=== PATIENT | male | born 2000 | race Caucasian/White ===

== ENCOUNTER 2019-06-02 15:21 | Observation (INO) | payer OTHER ==
[~2019-06-02 15:21] MED LIST: DEXAMETHASONE SOD PHOSPHATE INJ 4 MG/1 ML VIAL ONE; GLYCOPYRROLATE 1 MG/5 ML VIAL ONE; NEOSTIGMINE METHYLSULFATE 10 MG/10 ML VIAL ONE; ONDANSETRON HCL INJ/PF 4 MG/2 ML SDV ONE; ROCURONIUM BROMIDE INJ 50 MG/5 ML VIAL IV ONE; SUCCINYLCHOLINE CHLORIDE INJ 200 MG/10 ML VIAL ONE
[2019-06-02] MEDS ORDERED: CAPSAICIN 0.025% CREAM 60 GM TP ONE (15:33)
--- NOTE | 2019-06-02 15:35 | ER Document Report ---
ED Medical Screen (RME) - General Chief Complaint: Abdominal Pain Stated Complaint: ABDOMNAL PAIN Time Seen by Provider: 06/02/19 15:26 Mode of Arrival: Ambulatory Information source: Patient Notes: 18-year-old male presents to emergency department with complaints of abdominal pain since yesterday. Reports he thought it eased off yesterday but returned. Reports he has had diarrhea. Reports nausea no vomiting no fever but he did feel hot and cold. Patient does admit to smoking marijuana on a regular basis. Patient reports hot showers baths seem to make him feel better. Patient is te nder right lower quad. Has only had Gatorade to drink today. Has not been instructed on n.p.o. status. I have greeted and performed a rapid initial assessment of this patient. A comprehensive ED assessment and evaluation of the patient, analysis of test results and completion of the medical decision making process will be conducted by additional ED providers. Dictation of this chart was performed using voice recognition software; therefore, there may be some unintended grammatical errors. Physical Exam - Vital signs Vitals: Temp Pulse Resp BP Pulse Ox 98.4 F 79 20 119/69 99 06/02/19 15:26 06/02/19 15:26 06/02/19 15:26 06/02/19 15:26 06/02/19 15:26 Course - Vital Signs Vital signs: Temp Pulse Resp BP Pulse Ox 98.4 F 79 20 119/69 99 06/02/19 15:26 06/02/19 15:26 06/02/19 15:26 06/02/19 15:26 06/02/19 15:26
--- NOTE | 2019-06-02 16:36 | RADIOLOGY REPORT (SQ) ---
EXAM DESCRIPTION: U/S ABDOMEN LIMITED W/O DOP COMPLETED DATE/TIME: 06/02/2019 4:20 pm REASON FOR STUDY: RLQ RUQ PAIN, CHECK APPENDIX PLEASE COMPARISON: None. TECHNIQUE: Static and real time ivey scale imaging performed of the right and left lower quadrants w ith additional compression maneuvers. LIMITATIONS: None. FINDINGS: APPENDIX: Not visualized. BOWEL: Active peristalsis with fluid in the bowel. OTHER: No other significant finding. IMPRESSION: Appendix was not identified. Active peristalsis of bowel loops in the right and left lower quadrants was appreciated. TECHNICAL DOCUMENTATION: JOB ID: [id number] [employer]- All Rights Reserved Reading location - IP/workstation name: [email or web address]
[2019-06-02 16:43] LABS: ABSOLUTE BASOPHILS # (AUTO) 0.1 10^3/uL (0.0-0.2); ABSOLUTE EOSINOPHILS # (AUTO) 0.1 10^3/uL (0.0-0.6); ABSOLUTE LYMPHOCYTES (AUTO) 1.5 10^3/uL (0.5-4.7); ABSOLUTE NEUT (AUTO) 12.6 10^3/uL (1.7-8.2); BASOPHILS % (AUTO) 0.6 % (0-2); HEMATOCRIT 44.1 % (37.9-51.0); HEMOGLOBIN 15.6 g/dL (13.5-17.0); MEAN CORPUSCULAR HGB CONC 35.3 g/dL (32.0-36.0); MEAN CORPUSCULAR VOLUME 85 fl (80-97); MONOCYTES % (AUTO) 6.8 % (3-13); PLATELET COUNT 298 10^3/uL (150-450); RED BLOOD COUNT 5.19 10^6/uL (4.35-5.55); RED CELL DISTRIBUTION WIDTH 12.7 % (11.5-14.0); SEGMENTED NEUTROPHILS % (AUTO) 81.6 % (42-78); TOTAL CELLS COUNTED % (AUTO) 100 %; WHITE BLOOD COUNT 15.4 10^3/uL (4.0-10.5)
[2019-06-02 16:50] LABS: APPEARANCE,URINE SLIGHTLY-CLOUDY; BILIRUBIN,URINE NEGATIVE (NEGATIVE); COLOR,URINE AMBER; GLUCOSE, URINE NEGATIVE (NEGATIVE); KETONES,URINE TRACE mg/dL (NEGATIVE); LEUKOCYTE ESTERASE,URINE NEGATIVE (NEGATIVE); NITRITE,URINE NEGATIVE (NEGATIVE); PROTEIN,URINE 30 mg/dL (NEGATIVE)
[2019-06-02 17:01] LABS: ALBUMIN 4.7 g/dL (3.7-5.6); ALKALINE PHOSPHATASE 69 U/L (65-260); ANION GAP 11 (5-19); ASPARTATE AMINO TRANSFERASE 15 U/L (10-45); BILIRUBIN,DIRECT 0.2 mg/dL (0.0-0.4); BILIRUBIN,TOTAL 2.3 mg/dL (0.2-1.3); BLOOD UREA NITROGEN 7 mg/dL (7-20); CALCIUM 10.1 mg/dL (8.4-10.2); CARBON DIOXIDE 27 mmol/L (22-30); CHLORIDE 100 mmol/L (98-107); GLUCOSE 94 mg/dL (75-110); POTASSIUM 3.7 mmol/L (3.6-5.0); TOTAL PROTEIN 7.5 g/dL (6.3-8.2)
[2019-06-02 17:04] LABS: URINE AMPHETAMINES SCREEN NEGATIVE; URINE BARBITURATES SCREEN NEGATIVE; URINE BENZODIAZEPINES SCREEN NEGATIVE; URINE COCAINE SCREEN NEGATIVE; URINE MARIJUANA (THC) SCREEN UNCONFIRMED POSITIVE; URINE METHADONE SCREEN NEGATIVE; URINE PHENCYCLIDINE SCREEN NEGATIVE
[2019-06-02] MEDS ORDERED: NORMAL SALINE 1000 ML 1,000 ML IV ONE ×2 (17:57→19:39)
[2019-06-02] MEDS ORDERED: FENTANYL CITRATE INJ/PF 100 MCG/2 ML AMPUL IV ONE (17:57)
[2019-06-02] MEDS ORDERED: ONDANSETRON HCL INJ/PF 4 MG/2 ML SDV IV ONE (17:57)
[2019-06-02] MEDS ORDERED: FENTANYL CITRATE INJ/PF 100 MCG/2 ML AMPUL ONE (18:08)
--- NOTE | 2019-06-02 19:30 | RADIOLOGY REPORT (SQ) ---
EXAM DESCRIPTION: CT ABD/PELVIS WITH IV ONLY COMPLETED DATE/TIME: 06/02/2019 7:13 pm REASON FOR STUDY: RLQ pain COMPARISON: None. TECHNIQUE: CT scan of the abdomen and pelvis performed using helical scanning technique with dynamic intravenous contrast injection. No oral contrast. Images reviewed with lung, soft tissue, and bone w indows. Reconstructed coronal and sagittal MPR images reviewed. Delayed images for evaluation of the urinary system also acquired. All images stored on PACS. All CT scanners at this facility use dose modulation, iterative reconstruction, and/or weight based d osing when appropriate to reduce radiation dose to as low as reasonably achievable (ALARA). [facility]: Dose Right [facility]: CareDose [facility]: Dose Right [facility]: Teradose 4D [facility]: [employer] CONTRAST TYPE AND DOSE: contrast/concentration: Isovue 350.00 mg/ml; Total Contrast Delivered: 83.0 ml; Total Saline Delivered: 57.0 ml RENAL FUNCTION: GFR > 60. RADIATION DOSE: CT Rad equipment meets quality standard of care and radiation dose reduction techniq ues were employed. CTDIvol: 5.1 - 6.3 mGy. DLP: 652 mGy-cm.. LIMITATIONS: None. FINDINGS: LOWER CHEST: No significant findings. LIVER: Normal size. No enhancing masses. No dilated ducts. SPLEEN: Normal size. No focal lesions. PANCREAS: No masses identified. No significant calcifications. No adjacent inflammation or peripancre atic fluid collections. Pancreatic duct not dilated. GALLBLADDER: No calcified stones. No inflammatory changes to suggest cholecystitis. ADRENAL GLANDS: No significant masses. RIGHT KIDNEY AND URETER: No cysts identified. No solid masses identified. No calcified stones. No hyd ronephrosis or hydroureter. LEFT KIDNEY AND URETER: Small cysts identified. No solid masses identified. No calcified stones. No h ydronephrosis or hydroureter. AORTA AND VESSELS: No aneurysm. No dissection. Renal arteries, SMA, celiac without significant stenos is. RETROPERITONEUM: No bulky retroperitoneal adenopathy. BOWEL AND PERITONEAL CAVITY: No obstruction or inflammatory changes. No free fluid. APPENDIX: 2 cm diameter with wall thickening and adjacent inflammatory changes. No adjacent free air or fluid collection identified. PELVIS: Trace free fluid. Unremarkable bladder. ABDOMINAL WALL: No masses. No hernias. BONES: No acute findings. OTHER: No other significant finding. IMPRESSION: Acute appendicitis.No adjacent free air or fluid collection identified. TECHNICAL DOCUMENTATION: JOB ID: [id number] [place]-72 Quality ID # [id number]: Final reports with documentation of one or more dose reduction techniques (e.g., Au tomated exposure control, adjustment of the mA and/or kV according to patient size, use of iterative reconstruction technique) 2010 [employer]- All Rights Reserved Reading location - IP/workstation name: [email or web address]
[2019-06-02] MEDS ORDERED: HYDROMORPHONE HCL INJ/PF 2 MG/ML AMPULE IV ONE (19:38)
--- NOTE | 2019-06-02 19:45 | ER Document Report ---
ED GI/ - General Chief Complaint: Abdominal Pain Stated Complaint: ABDOMNAL PAIN Time Seen by Provider: 06/02/19 15:26 Mode of Arrival: Ambulatory Notes: Patient is an otherwise healthy 18-year-old male presents to the emergency department for stabbing lower abdominal pain that started yesterday morning. Patient voices generalized nausea but is denying any vomiting. States multiple episodes of diarrhea but is denying any blood in his stool. Patient admits to a subjective fever. Is denying any dysuria. He is denying any testicular pain or penile discharge. Patient is up-to-date on immunizations, states last oral intake was yesterday evening. TRAVEL OUTSIDE OF THE [place] IN LAST 30 DAYS: No - Related Data Allergies/Adverse Reactions: No Known Allergies Allergy (Unverified 06/02/19 18:04) Past Medical History - General Information source: Patient - Social History Smoking Status: Never Smoker Chew tobacco use (# tins/day): No Frequency of alcohol use: None Drug Abuse: Marijuana Family History: Reviewed & Not Pertinent Patient has suicidal ideation: No Patient has homicidal ideation: No Review of Systems - Review of Systems Constitutional: Fever EENT: No symptoms reported Cardiovascular: No symptoms reported Respiratory: No symptoms reported Gastrointestinal: See HPI Genitourinary: No symptoms reported Male Genitourinary: No symptoms reported Musculoskeletal: No symptoms reported Skin: No symptoms reported Hematologic/Lymphatic: No symptoms reported Neurological/Psychological: No symptoms reported Physical Exam - Vital signs Vitals: Temp Pulse Resp BP Pulse Ox 98.4 F 79 20 119/69 99 06/02/19 15:26 06/02/19 15:26 06/02/19 15:26 06/02/19 15:26 06/02/19 15:26 - Notes Notes: GENERAL: Alert, interacts well. HEAD: Normocephalic, atraumatic. EYES: Pupils equal, round, and reactive to light. Extraocular movements intact. ENT: Oral mucosa moist, tongue midline. NECK: Full range of motion. Supple. Trachea midline. LUNGS: Clear to auscultation bilaterally, no wheezes, rales, or rhonchi. No respiratory distress. HEART: Regular rate and rhythm. No murmur ABDOMEN: Soft, generalized right and left lower abdominal pain noted. Non- distended. Bowel sounds present in all 4 quadrants. EXTREMITIES: Moves all 4 extremities spontaneously. No edema, normal radial and dorsalis pedis pulses bilaterally. No cyanosis. BACK: no cervical, thoracic, lumbar midline tenderness. No saddle anesthesia, normal distal neurovascular exam. NEUROLOGICAL: Alert and oriented x3. Normal speech. cranial nerves II through XII grossly intact PSYCH: Normal affect, normal mood. SKIN: Warm, dry, normal turgor. No rashes or lesions noted. Course - Re-evaluation Re-evalutation: 06/02/19 19:44 Laboratory 06/02/19 06/02/19 06/02/19 16:26 16:26 16:26 WBC 15.4 H RBC 5.19 Hgb 15.6 Hct 44.1 MCV 85 MCH 30.0 MCHC 35.3 RDW 12.7 Plt Count 298 Lymph % (Auto) 10.0 L [place] % (Auto) 6.8 Eos % (Auto) 1.0 Baso % (Auto) 0.6 Absolute Neuts (auto) 12.6 H Absolute Lymphs (auto) 1.5 Absolute Monos (auto) 1.0 Absolute Eos (auto) 0.1 Absolute Basos (auto) 0.1 Seg Neutrophils % 81.6 H Sodium 138.2 Potassium 3.7 Chloride 100 Carbon Dioxide 27 Anion Gap 11 BUN 7 Creatinine 0.89 Est GFR ( Amer) > 60 Est GFR (MDRD) Non-Af > 60 Glucose 94 Calcium 10.1 Total Bilirubin 2.3 H Direct Bilirubin 0.2 Neonat Total Bilirubin Not Reportable Neonat Direct Bilirubin Not Reportable Neonat Indirect Bili Not Reportable AST 15 ALT 14 Alkaline Phosphatase 69 Total Protein 7.5 Albumin 4.7 Lipase 16.2 L Urine Color BERNARD Urine Appearance SLIGHTLY-CLOUDY Urine pH 6.0 Ur Specific [place] 1.020 Urine Protein 30 H Urine Glucose (UA) NEGATIVE Urine Ketones TRACE H Urine Blood SMALL H Urine Nitrite NEGATIVE Urine Bilirubin NEGATIVE Urine Urobilinogen 2.0 H Ur Leukocyte Esterase NEGATIVE Urine WBC (Auto) 2 Urine RBC (Auto) 7 Urine Mucus (Auto) MANY Urine Ascorbic Acid NEGATIVE Urine Opiates Screen Urine Methadone Screen Ur Barbiturates Screen Ur Phencyclidine Scrn Ur Amphetamines Screen U Benzodiazepines Scrn Urine Cocaine Screen U Marijuana (THC) Screen 06/02/19 16:26 WBC RBC Hgb Hct MCV MCH MCHC RDW Plt Count Lymph % (Auto) [place] % (Auto) Eos % (Auto) Baso % (Auto) Absolute Neuts (auto) Absolute Lymphs (auto) Absolute Monos (auto) Absolute Eos (auto) Absolute Basos (auto) Seg Neutrophils % Sodium Potassium Chloride Carbon Dioxide Anion Gap BUN Creatinine Est GFR ( Amer) Est GFR (MDRD) Non-Af Glucose Calcium Total Bilirubin Direct Bilirubin Neonat Total Bilirubin Neonat Direct Bilirubin Neonat Indirect Bili AST ALT Alkaline Phosphatase Total Protein Albumin Lipase Urine Color Urine Appearance Urine pH Ur Specific [place] Urine Protein Urine Glucose (UA) Urine Ketones Urine Blood Urine Nitrite Urine Bilirubin Urine Urobilinogen Ur Leukocyte Esterase Urine WBC (Auto) Urine RBC (Auto) Urine Mucus (Auto) Urine Ascorbic Acid Urine Opiates Screen NEGATIVE Urine Methadone Screen NEGATIVE Ur Barbiturates Screen NEGATIVE Ur Phencyclidine Scrn NEGATIVE Ur Amphetamines Screen NEGATIVE U Benzodiazepines Scrn NEGATIVE Urine Cocaine Screen NEGATIVE U Marijuana (THC) Screen UNCONFIRMED POSITIVE Abdomen Ultrasound 06/02/19 15:32 IMPRESSION: Appendix was not identified. Active peristalsis of bowel loops in the right and left lower quadrants was appreciated. Abdomen/Pelvis CT 06/02/19 17:57 IMPRESSION: Acute appendicitis.No adjacent free air or fluid collection identified. Initial orders and ultrasound placed by [facility] provider. Based on my physical assessment patient does have significant right lower quadrant pain. Treated with pain medication and nausea medication. Patient CT image does show acute appendicitis. I have discussed this case with surgeon Dr. Gaines. He states he will come to the emergency department to evaluate the patient. - Vital Signs Vital signs: Temp Pulse Resp BP Pulse Ox 98.4 F 79 20 119/69 99 06/02/19 15:26 06/02/19 15:26 06/02/19 15:26 06/02/19 15:26 06/02/19 15:26 - Laboratory Result Diagrams: 06/02/19 16:26 06/02/19 16:26 Laboratory results interpreted by me: 06/02/19 06/02/19 06/02/19 16:26 16:26 16:26 WBC 15.4 H Lymph % (Auto) 10.0 L Absolute Neuts (auto) 12.6 H Seg Neutrophils % 81.6 H Total Bilirubin 2.3 H Lipase 16.2 L Urine Protein 30 H Urine Ketones TRACE H Urine Blood SMALL H Urine Urobilinogen 2.0 H Discharge - Discharge Clinical Impression: Acute appendicitis Qualifiers: Acute appendicitis type: unspecified acute appendicitis type Qualified Code(s): K35.80 - Unspecified acute appendicitis Condition: Stable Disposition: ADMITTED INPATIENT Admitting Provider: Surgicalist - Dr. Gaines Unit Admitted: OR
[2019-06-02] MEDS ORDERED: PIPERACILLIN/TAZOBACTAM 3.375 GM VIAL IV ONE (20:16)
--- NOTE | 2019-06-02 20:16 | PDOC H&P ---
History of Present Illness Patient complains of: lower abdominal pain History of Present Illness: ADRI TAVERAS is a 18 year old male with no significant medical problems. He reports a 24-hour history of right lower quadrant and pelvic pain. His pain intensified, and he presented for evaluation at the emergency department. His pain is sharp and stabbing. It is growing in intensity. Currently it is 5 out of 10. It radiates to his pelvis and left lower quadrant. Nothing makes it better. Palpation makes it worse. The patient denies chest pain, shortness of breath, fevers, chills, nausea, vomiting, melena, hematochezia, dizziness, orthostasis, headache. Past Medical History Medical History: None Past Surgical History Past Surgical History: Reports: None Social History Smoking Status: Current Every Day Smoker - E-cigarettes Electronic Cigarette use?: Yes Frequency of Alcohol Use: Occasional Drugs: None Family History Family History: Reviewed & Not Pertinent Parental Family History Reviewed: Yes Children Family History Reviewed: Yes Sibling(s) Family History Reviewed.: Yes Medication/Allergy Allergies/Adverse Reactions: No Known Allergies Allergy (Unverified 06/02/19 18:04) Review of Systems Constitutional: ABSENT: anorexia, chills, fatigue, fever(s), headache(s) Eyes: ABSENT: visual disturbances Ears: ABSENT: hearing changes Nose, Mouth, and Throat: ABSENT: mouth pain, sore throat Cardiovascular: ABSENT: chest pain Respiratory: ABSENT: cough, dyspnea Gastrointestinal: PRESENT: abdominal pain. ABSENT: hematemesis, hematochezia, melena, nausea, vomiting Genitourinary: ABSENT: dysuria Musculoskeletal: ABSENT: back pain Neurological: ABSENT: confusion, convulsions, dizziness, paresthesias Psychiatric: ABSENT: anxiety, depression Endocrine: ABSENT: cold intolerance, heat intolerance Hematologic/Lymphatic: ABSENT: easy bleeding, easy bruising Physical Exam Vital Signs: Temp Pulse Resp BP Pulse Ox 98.4 F 79 20 119/69 99 06/02/19 15:26 06/02/19 15:26 06/02/19 15:26 06/02/19 15:26 06/02/19 15:26 Intake & Output 06/01/19 06/02/19 06/03/19 06:59 06:59 06:59 Intake Total 1000 Balance 1000 Weight 73.5 kg General appearance: PRESENT: no acute distress, cooperative. ABSENT: disheveled Head exam: PRESENT: atraumatic, normocephalic Eye exam: PRESENT: EOMI, PERRLA. ABSENT: scleral icterus Mouth exam: PRESENT: moist, neck supple Neck exam: ABSENT: tenderness, thyromegaly, tracheal deviation Respiratory exam: PRESENT: clear to auscultation jewell, unlabored. ABSENT: chest wall tenderness, tachypnea, wheezes Cardiovascular exam: PRESENT: RRR Pulses: PRESENT: normal radial pulses Vascular exam: PRESENT: normal capillary refill, pallor GI/Abdominal exam: PRESENT: soft, tenderness - Right lower quadrant and suprapubic areas., other - No sign of generalized peritonitis.. ABSENT: distended, rebound Rectal exam: PRESENT: deferred Extremities exam: ABSENT: clubbing Musculoskeletal exam: ABSENT: deformity Neurological exam: PRESENT: alert, awake, oriented to person, oriented to place, oriented to time, oriented to situation, CN II-XII grossly intact. ABSENT: motor sensory deficit Psychiatric exam: ABSENT: agitated, anxious, depressed Focused psych exam: ABSENT: delusional Skin exam: ABSENT: cyanosis, erythema, jaundice Results Laboratory Results: 06/02/19 16:26 06/02/19 16:26 06/02/19 06/02/19 06/02/19 16:26 16:26 16:26 WBC 15.4 H RBC 5.19 Hgb 15.6 Hct 44.1 MCV 85 MCH 30.0 MCHC 35.3 RDW 12.7 Plt Count 298 Seg Neutrophils % 81.6 H Sodium 138.2 Potassium 3.7 Chloride 100 Carbon Dioxide 27 Anion Gap 11 BUN 7 Creatinine 0.89 Est GFR ( Amer) > 60 Glucose 94 Calcium 10.1 Total Bilirubin 2.3 H AST 15 Alkaline Phosphatase 69 Total Protein 7.5 Albumin 4.7 Lipase 16.2 L Urine Color BERNARD Urine Appearance SLIGHTLY-CLOUDY Urine pH 6.0 Ur Specific [place] 1.020 Urine Protein 30 H Urine Glucose (UA) NEGATIVE Urine Ketones TRACE H Urine Blood SMALL H Urine Nitrite NEGATIVE Ur Leukocyte Esterase NEGATIVE Urine WBC (Auto) 2 Urine RBC (Auto) 7 Impressions: Abdomen Ultrasound 06/02/19 15:32 IMPRESSION: Appendix was not identified. Active peristalsis of bowel loops in the right and left lower quadrants was appreciated. Abdomen/Pelvis CT 06/02/19 17:57 IMPRESSION: Acute appendicitis.No adjacent free air or fluid collection identified. Status: Image reviewed by me Assessment & Plan - Diagnosis (1) Acute appendicitis Qualifiers: Acute appendicitis type: unspecified acute appendicitis type Qualified Code(s): K35.80 - Unspecified acute appendicitis Is this a current diagnosis for this admission?: Yes - Plan Summary Plan Summary: This is a 18-year-old male with a 1 day history of right lower quadrant pain. It is sharp and stabbing. It is worsening. The patient has a physical exam, laboratory findings, and CT scan (which I have reviewed images and report) that are consistent with acute appendicitis. I have discussed treatment of appendicitis with the patient. I have reviewed operative versus nonoperative management strategies. The patient is chosen operative management of his acute appendicitis. Risks/benefits discussed, informed consent obtained, and all questions answered.
[2019-06-02] MEDS ORDERED: BUPIVACAINE HCL 0.25 % INJ/PF (2.5 MG/1 ML) 30 ML VIAL ONE (20:52)
[2019-06-02] MEDS ORDERED: FENTANYL CITRATE INJ/PF 250 MCG/5 ML AMPULE ONE (20:56)
[2019-06-02] MEDS ORDERED: MIDAZOLAM 2 MG/2 ML INJ ONE (20:56)
[2019-06-02] MEDS ORDERED: PROPOFOL INJ 200 MG/20 ML VIAL IV ONE (20:57)
[2019-06-02] MEDS ORDERED: PIPERACILLIN SODIUM/TAZOBACTAM 3.375 GM in NORMAL SALINE 100 ML IV ONE (21:00)
[2019-06-02] MEDS ORDERED: DIPHENHYDRAMINE HCL 50 MG/ML VIAL IV PRN (22:07)
[2019-06-02] MEDS ORDERED: MORPHINE SULFATE 10 MG/ML INJ IV PRN (22:07)
[2019-06-02] MEDS ORDERED: FENTANYL CITRATE INJ/PF 100 MCG/2 ML AMPUL IV PRN ×3 (22:07)
[2019-06-02] MEDS ORDERED: MEPERIDINE HCL/PF INJ 25 MG/1 ML DISP.SYRIN IV PRN (22:07)
[2019-06-02] MEDS ORDERED: PROMETHAZINE HCL INJ 25 MG/1 ML VIAL IV PRN (22:07)
--- NOTE | 2019-06-02 22:16 | Operative Report ---
Nonrecallable Operative Report DATE OF SURGERY: 06/02/19 PREOPERATIVE DIAGNOSIS: Acute appendicitis POSTOPERATIVE DIAGNOSIS: Acute appendicitis, nonperforated OPERATION: Laparoscopic appendectomy SURGEON: DENG DO ANESTHESIA: GA TISSUE REMOVED OR ALTERED: Appendix COMPLICATIONS: None apparent ESTIMATED BLOOD LOSS: Minimal PROCEDURE: Drains/implants: None. Procedure in detail: After informed consent was obtained, the patient was brought to the operating room and laid in the supine position. The area of the abdomen was prepped and draped in a normal sterile fashion. A supraumbilical incision was created with a 15 blade scalpel. Dissection was carried through the subcutaneous tissue using sharp and blunt dissection. The cicatrix was identified, grasped with a Louie clamp, and retracted upwards. The linea alba fascia was incised sharply, the abdomen was entered sharply. The balloon trocar was inserted, and pneumoperitoneum was achieved. A suprapubic 5 mm trocar was placed under direct laparoscopic visualization, as well as a left lower quadrant 5 mm trocar. Atraumatic graspers were placed through the 5 mm ports. The appendix was identified. It was inflamed and injected. It was not perforated. The appendix was retracted anteriorly. The mesoappendix was taken down using the harmonic scalpel. 2 PDS Endoloops were secured around the base of the appendix. The appendix was then amputated using the harmonic scalpel. The appendix was placed into an Endo Catch bag and pulled out through the umbilicus. The camera was reinserted. The abdomen was inspected. No other obvious defect could be identified throughout the abdomen. A small amount of free fluid was suctioned from the pelvis. No irrigation was used. The 5 mm trochars were then removed under direct laparoscopic visualization. The supraumbilical trocar was removed, and pneumoperitoneum was relieved. The supraumbilical fascia was closed using 0 Vicryl suture in [id number] fashion. The overlying skin was closed using 4-0 Vicryl Rapide suture in subcuticular fashion. All sponge, instrument, and needle counts were correct x2. Condition: Stable.
[2019-06-02] MEDS ORDERED: ONDANSETRON HCL INJ/PF 4 MG/2 ML SDV IV PRN (22:20)
[2019-06-02] MEDS: HYDROCODONE/ACETAMINOPHEN 10-325 MG TABLET PO PRN (23:19)
[2019-06-02] MEDS: FAMOTIDINE 20 MG TABLET PO SCH (23:19)
[2019-06-03] MEDS: MORPHINE SULFATE 10 MG/ML INJ IV PRN ×2 (00:41→09:15)
[2019-06-03] MEDS ORDERED: KETOROLAC TROMETHAMINE INJ/PF 30 MG/1 ML SDV IV SCH (06:00)
[2019-06-03 08:08] VITALS: BP 109/42
--- NOTE | 2019-06-03 08:31 | PDOC PROGRESS REPORT ---
Subjective Progress Note for:: 06/03/19 Subjective:: Feels better. Reason For Visit: ACUTE APPENDICITIS Physical Exam Vital Signs: Temp Pulse Resp BP Pulse Ox 97.9 F 51 L 16 109/42 L 98 06/03/19 08:07 06/03/19 08:07 06/03/19 08:07 06/03/19 08:07 06/03/19 08:07 Intake & Output 06/02/19 06/03/19 06/04/19 06:59 06:59 06:59 Intake Total 4003 Output Total 205 Balance 3798 Weight 76.2 kg General appearance: PRESENT: no acute distress, cooperative Cardiovascular exam: PRESENT: RRR GI/Abdominal exam: PRESENT: other - Soft, nondistended, mild tenderness at the incision sites. Minimal tenderness at the right lower quadrant. Extremities exam: PRESENT: other - No swelling and no tenderness Results Laboratory Results: 06/02/19 16:26 06/02/19 16:26 06/02/19 06/02/19 06/02/19 16:26 16:26 16:26 WBC 15.4 H RBC 5.19 Hgb 15.6 Hct 44.1 MCV 85 MCH 30.0 MCHC 35.3 RDW 12.7 Plt Count 298 Seg Neutrophils % 81.6 H Sodium 138.2 Potassium 3.7 Chloride 100 Carbon Dioxide 27 Anion Gap 11 BUN 7 Creatinine 0.89 Est GFR ( Amer) > 60 Glucose 94 Calcium 10.1 Total Bilirubin 2.3 H AST 15 Alkaline Phosphatase 69 Total Protein 7.5 Albumin 4.7 Lipase 16.2 L Urine Color BERNARD Urine Appearance SLIGHTLY-CLOUDY Urine pH 6.0 Ur Specific [place] 1.020 Urine Protein 30 H Urine Glucose (UA) NEGATIVE Urine Ketones TRACE H Urine Blood SMALL H Urine Nitrite NEGATIVE Ur Leukocyte Esterase NEGATIVE Urine WBC (Auto) 2 Urine RBC (Auto) 7 Impressions: Abdomen Ultrasound 06/02/19 15:32 IMPRESSION: Appendix was not identified. Active peristalsis of bowel loops in the right and left lower quadrants was appreciated. Abdomen/Pelvis CT 06/02/19 17:57 IMPRESSION: Acute appendicitis.No adjacent free air or fluid collection identified. Assessment & Plan - Diagnosis (1) Acute appendicitis Qualifiers: Acute appendicitis type: unspecified acute appendicitis type Qualified Code(s): K35.80 - Unspecified acute appendicitis Is this a current diagnosis for this admission?: Yes Plan: Status post laparoscopic appendectomy. Patient doing very well. Will discharge patient home. - Time Time Spent with patient: Less than 15 minutes Level of Care: MEDICAL Anticipated discharge: Home Within: within 24 hours
--- NOTE | 2019-06-03 08:36 | PDOC DISCHARGE SUMMARY ---
General - Admit/Disc Date/PCP Admission Date/Primary Care Provider: 06/02/19 20:29 Discharge Date: 06/03/19 - Discharge Diagnosis Final Diagnosis: Appendicitis - Assessment Summary: Patient underwent laparoscopic appendectomy. Patient did well postoperatively. Was feeling better and was tolerating a diet at the time of discharge. Patient has not been discharged home in good condition. He is encouraged to stay active but avoid strenuous activity at home. Follow-up with Dr. Gaines in 2 weeks. Call for any problems or concerns. - Additional Information Resuscitation Status: Full Code Discharge Diet: As Tolerated Discharge Activity: Activity As Tolerated - Stay active but avoid strenuous activity. May shower tomorrow. Keep Steri-Strips on. Referrals: DENG GAINES MD [ACTIVE STAFF] - Prescriptions: Oxycodone HCl/Acetaminophen [Percocet 5-325 mg Tablet] 1 tab PO ASDIR PRN #15 tablet PRN Reason: Home Medications: Oxycodone HCl/Acetaminophen [Percocet 5-325 mg Tablet] 1 tab PO ASDIR PRN #15 tablet 06/03/19 Additional Information: Call for fever of 101 or greater. Call for increasing abdominal pain or persistent nausea vomiting. Call for redness or foul drainage from wounds. Call for any concerns. Please arrange follow-up with Dr. Gaines in 2 weeks. History of Present Illiness History of Present Illness: ADRI TAVERAS is a 18 year old male Physical Exam Vital Signs: Temp Pulse Resp BP Pulse Ox 97.9 F 51 L 16 109/42 L 98 06/03/19 08:07 06/03/19 08:07 06/03/19 08:07 06/03/19 08:07 06/03/19 08:07 Intake & Output 06/02/19 06/03/19 06/04/19 06:59 06:59 06:59 Intake Total 4003 Output Total 205 Balance 3798 Weight 76.2 kg Results Laboratory Results: WBC 15.4 10^3/uL (4.0-10.5) H 06/02/19 16:26 RBC 5.19 10^6/uL (4.35-5.55) 06/02/19 16:26 Hgb 15.6 g/dL (13.5-17.0) 06/02/19 16:26 Hct 44.1 % (37.9-51.0) 06/02/19 16:26 MCV 85 fl (80-97) 06/02/19 16:26 MCH 30.0 pg (27.0-33.4) 06/02/19 16:26 MCHC 35.3 g/dL (32.0-36.0) 06/02/19 16:26 RDW 12.7 % (11.5-14.0) 06/02/19 16:26 Plt Count 298 10^3/uL (150-450) 06/02/19 16:26 Lymph % (Auto) 10.0 % (13-45) L 06/02/19 16:26 [place] % (Auto) 6.8 % (3-13) 06/02/19 16:26 Eos % (Auto) 1.0 % (0-6) 06/02/19 16:26 Baso % (Auto) 0.6 % (0-2) 06/02/19 16:26 Absolute Neuts (auto) 12.6 10^3/uL (1.7-8.2) H 06/02/19 16:26 Absolute Lymphs (auto) 1.5 10^3/uL (0.5-4.7) 06/02/19 16:26 Absolute Monos (auto) 1.0 10^3/uL (0.1-1.4) 06/02/19 16:26 Absolute Eos (auto) 0.1 10^3/uL (0.0-0.6) 06/02/19 16:26 Absolute Basos (auto) 0.1 10^3/uL (0.0-0.2) 06/02/19 16:26 Seg Neutrophils % 81.6 % (42-78) H 06/02/19 16:26 Sodium 138.2 mmol/L (137-145) 06/02/19 16:26 Potassium 3.7 mmol/L (3.6-5.0) 06/02/19 16:26 Chloride 100 mmol/L (98-107) 06/02/19 16:26 Carbon Dioxide 27 mmol/L (22-30) 06/02/19 16:26 Anion Gap 11 (5-19) 06/02/19 16:26 BUN 7 mg/dL (7-20) 06/02/19 16:26 Creatinine 0.89 mg/dL (0.52-1.25) 06/02/19 16:26 Est GFR ( Amer) > 60 (>60) 06/02/19 16:26 Est GFR (MDRD) Non-Af > 60 (>60) 06/02/19 16:26 Glucose 94 mg/dL (75-110) 06/02/19 16:26 Calcium 10.1 mg/dL (8.4-10.2) 06/02/19 16:26 Total Bilirubin 2.3 mg/dL (0.2-1.3) H 06/02/19 16:26 Direct Bilirubin 0.2 mg/dL (0.0-0.4) 06/02/19 16:26 Neonat Total Bilirubin Not Reportable 06/02/19 16:26 Neonat Direct Bilirubin Not Reportable 06/02/19 16:26 Neonat Indirect Bili Not Reportable 06/02/19 16:26 AST 15 U/L (10-45) 06/02/19 16:26 ALT 14 U/L (<50) 06/02/19 16:26 Alkaline Phosphatase 69 U/L (65-260) 06/02/19 16:26 Total Protein 7.5 g/dL (6.3-8.2) 06/02/19 16:26 Albumin 4.7 g/dL (3.7-5.6) 06/02/19 16:26 Lipase 16.2 U/L (23-300) L 06/02/19 16:26 Urine Color BERNARD 06/02/19 16:26 Urine Appearance SLIGHTLY-CLOUDY 06/02/19 16:26 Urine pH 6.0 (5.0-9.0) 06/02/19 16:26 Ur Specific [place] 1.020 06/02/19 16:26 Urine Protein 30 mg/dL (NEGATIVE) H 06/02/19 16:26 Urine Glucose (UA) NEGATIVE mg/dL (NEGATIVE) 06/02/19 16:26 Urine Ketones TRACE mg/dL (NEGATIVE) H 06/02/19 16:26 Urine Blood SMALL (NEGATIVE) H 06/02/19 16:26 Urine Nitrite NEGATIVE (NEGATIVE) 06/02/19 16:26 Urine Bilirubin NEGATIVE (NEGATIVE) 06/02/19 16:26 Urine Urobilinogen 2.0 mg/dL (<2.0) H 06/02/19 16:26 Ur Leukocyte Esterase NEGATIVE (NEGATIVE) 06/02/19 16:26 Urine WBC (Auto) 2 /HPF 06/02/19 16:26 Urine RBC (Auto) 7 /HPF 06/02/19 16:26 Urine Mucus (Auto) MANY /LPF 06/02/19 16:26 Urine Ascorbic Acid NEGATIVE (NEGATIVE) 06/02/19 16:26 Urine Opiates Screen NEGATIVE 06/02/19 16:26 Urine Methadone Screen NEGATIVE 06/02/19 16:26 Ur Barbiturates Screen NEGATIVE 06/02/19 16:26 Ur Phencyclidine Scrn NEGATIVE 06/02/19 16:26 Ur Amphetamines Screen NEGATIVE 06/02/19 16:26 U Benzodiazepines Scrn NEGATIVE 06/02/19 16:26 Urine Cocaine Screen NEGATIVE 06/02/19 16:26 U Marijuana (THC) Screen UNCONFIRMED POSITIVE 06/02/19 16:26 Impressions: Abdomen Ultrasound 06/02/19 15:32 IMPRESSION: Appendix was not identified. Active peristalsis of bowel loops in the right and left lower quadrants was appreciated. Abdomen/Pelvis CT 06/02/19 17:57 IMPRESSION: Acute appendicitis.No adjacent free air or fluid collection identified.
[2019-06-03] MEDS: FAMOTIDINE 20 MG TABLET PO SCH (09:15)
[2019-06-03] MEDS: HYDROCODONE/ACETAMINOPHEN 10-325 MG TABLET PO PRN (11:18)
== END 2019-06-03 14:40 | disposition home or self-care (01) ==
LOC: ER 15:21 → INTOOBSV 20:29 → EH 20:29 → 4S 23:08
PROVIDERS: ATTEND Surgery
PROC: 0DTJ4ZZ Resection of Appendix, Percutaneous Endoscopic Approach (ICD-10-PCS; principal; 2019-06-02 21:15)
DX: K35.80 Unspecified acute appendicitis (principal); F17.290 Nicotine dependence, other tobacco product, uncomplicated; R10.2 Pelvic and perineal pain; F12.10 Cannabis abuse, uncomplicated
CPT/HCPCS: 99285; 96361; 96374; 96375; 36415; 83690; 85025; 80053; 81001; 80307; 88304 ×2; 76705; 74177; 00840; 44970; J2250; J3490 ×3; J1100; J3010 ×2; J1885; J2270; J2710; J1170; J0330; J2405; J7050; J7030; J2704; J2543; 840; G0378